=== PATIENT | female | born 1950 | race Hispanic/Latino ===

== ENCOUNTER 2019-08-23 07:38 | Outpatient (CLI) | payer MEDICARE ==
[2019-08-23] MEDS ORDERED: Iopamidol-370 76% 500 ML 1 ML ONE (14:26)
--- NOTE | 2019-08-23 14:48 | CT ---
CT ABDOMEN WITH AND WITHOUT CONTRAST: Date: 08/23/2019 INDICATION: Right upper quadrant abdominal pain and bloating. COMPARISON: None. FINDINGS: No definite renal calculus is evident. Adrenal glands are normal appearing. The gallbladder is surgic ally absent. No focal hepatic lesion is noted. The pancreas and kidneys reveal no definite focal lesi on. There is a partially duplicated right renal collecting system. The spleen is normal appearing. 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 No enlarged lymph nodes or free f luid is evident. There is a normal appendix seen in the right lower quadrant. There is scattered colo guillermo diverticula. No acute osseous abnormality is evident. IMPRESSION: 1. No CT explanation for the patient's right upper quadrant abdominal pain. The gallbladder is surgi edi absent. 2. Colonic diverticulosis without evidence of active diverticulitis. 3. Partially duplicated right renal collecting system. POS: CET
== END 2019-08-23 07:39 | disposition home or self-care (01) ==
LOC: BICCT 07:38
PROVIDERS: ATTEND Family Medicine
DX: R19.01 Right upper quadrant abdominal swelling, mass and lump (principal); K57.30 Diverticulosis of large intestine without perforation or abscess without bleeding; Q63.0 Accessory kidney; Z90.49 Acquired absence of other specified parts of digestive tract
CPT/HCPCS: 74170; 82565; Q9967

== ENCOUNTER 2020-09-03 13:21 | Outpatient (CLI) | payer MEDICARE | END 2020-09-03 13:22 | disposition home or self-care (01) | LOC: BICMAMMO 13:21 | PROVIDERS: ATTEND Family Medicine | DX: Z12.31 Encounter for screening mammogram for malignant neoplasm of breast (principal) | CPT/HCPCS: 77063; 77067 ==

== ENCOUNTER 2020-11-13 13:55 | Outpatient (CLI) | payer MEDICARE | END 2020-11-13 13:56 | disposition home or self-care (01) | LOC: BICRAD 13:55 | PROVIDERS: ATTEND Family Medicine | DX: M54.5 Low back pain (principal); M47.816 Spondylosis without myelopathy or radiculopathy, lumbar region | CPT/HCPCS: 72100 ==

== ENCOUNTER 2021-07-11 13:39 | Outpatient (CLI) | payer MEDICARE | END 2021-07-11 13:40 | disposition home or self-care (01) | LOC: BICULT 13:39 | PROVIDERS: ATTEND Family Medicine | DX: N95.0 Postmenopausal bleeding (principal); N85.8 Other specified noninflammatory disorders of uterus | CPT/HCPCS: 76856 ==

== ENCOUNTER 2022-04-16 13:32 | Outpatient (CLI) | payer MEDICARE, OTHER | END 2022-04-16 13:33 | disposition home or self-care (01) | LOC: BICMAMMO 13:32 | PROVIDERS: ATTEND Family Medicine | DX: Z13.820 Encounter for screening for osteoporosis (principal); Z78.0 Asymptomatic menopausal state; M85.88 Other specified disorders of bone density and structure, other site | CPT/HCPCS: 77080 ==

== ENCOUNTER 2022-07-17 15:13 | Emergency (ER) | payer OTHER ==
[2022-07-17 17:11] LABS: #Basophils 0.1 thou/uL (0.0-0.2); #Eosinphils 0.2 thou/uL (0.0-0.7); #Lymphocytes 2.5 thou/uL (1.20-3.40); #Monocytes 0.4 thou/uL (0.11-0.59); #Neutrophils 5.6 thou/uL (1.40-6.50); %Basophils 0.6 % (0.0-1.0); %Eosinophils 2.1 % (0.0-10.0); %Lymphocytes 28.2 % (21.0-51.0); %Monocytes 4.8 % (0.0-10.0); %Neutrophils 64.3 % (42.0-75.0); Hemoglobin 13.3 g/dL (12.0-16.0); Mean Corpuscular Hemoglobin 30.6 pg (27.0-31.0); Mean Corpuscular Volume 92.8 fl (78.0-98.0); Mean Platelet Volume 9.4 fL (7.4-10.4); Platelet Count 282 10x3/uL (130-400); Red Blood Cell (RBC) Count 4.36 mill/uL (4.20-5.40); White Blood Cell (WBC) Count 8.7 10x3/uL (4.8-10.8)
[2022-07-17 17:31] LABS: ALT (SGPT) 19 U/L (8-55); AST (SGOT) 23 U/L (5-34); Albumin 4.3 g/dL (3.4-4.8); Alkaline Phosphatase 71 U/L (40-110); Anion Gap 14 mmol/L (10-20); BUN (Urea Nitrogen) 9 mg/dL (9.8-20.1); Bilirubin, Total 0.3 mg/dL (0.2-1.2); Calc. Creatinine Clearance 0 mL/min (70-130); Calcium 10.1 mg/dL (7.8-10.44); Carbon Dioxide 28 mmol/L (23-31); Chloride 99 mmol/L (98-107); Estimated GFR 80; Globulin 3.6 g/dL (2.4-3.5); Glucose 188 mg/dL (80-115); Lipase 39 U/L (8-78); Potassium 4.5 mmol/L (3.5-5.1); Protein, Total 7.9 g/dL (5.8-8.1); Sodium 136 mmol/L (136-145)
== END 2022-07-17 17:47 | disposition home or self-care (01) ==
LOC: ERS 15:13
DX: R07.9 Chest pain, unspecified (principal); E11.9 Type 2 diabetes mellitus without complications; Z79.899 Other long term (current) drug therapy; Z79.82 Long term (current) use of aspirin
CPT/HCPCS: 36415; 71045; 80053; 83690; 84484; 85025; 93005

== ENCOUNTER 2023-03-20 08:31 | Outpatient (CLI) | payer OTHER, MEDICAID ==
[2023-03-20 09:35] LABS: #Basophils 0.1 10x3/uL (0.0-0.2); #Eosinphils 0.2 10x3/uL (0.0-0.5); #Monocytes 0.6 10x3/uL (0.0-1.1); %Basophils 0.6 % (0.0-2.0); %Eosinophils 1.8 % (0.0-6.0); %Lymphocytes 23.2 % (18.0-47.0); %Monocytes 4.9 % (0.0-10.0); %Neutrophils 69.2 % (40.0-75.0); Hematocrit 40.6 % (34.9-44.5); Hemoglobin 13.4 g/dL (12.0-15.5); Mean Platelet Volume 11.1 fl (7.4-10.4); Platelet Count 303 10x3/uL (150-450); Red Blood Cell (RBC) Count 4.46 10x6/uL (3.90-5.03); White Blood Cell (WBC) Count 11.5 10x3/uL (3.5-10.5)
[2023-03-20 09:50] LABS: ALT (SGPT) 20 U/L (8-55); AST (SGOT) 21 U/L (5-34); Albumin 4.3 g/dL (3.4-4.8); Alkaline Phosphatase 82 U/L (40-110); Anion Gap 14 mmol/L (10-20); BUN (Urea Nitrogen) 13 mg/dL (9.8-20.1); Bilirubin, Total 0.3 mg/dL (0.2-1.2); Calc. Creatinine Clearance 0 mL/min (70-130); Calcium 9.9 mg/dL (7.8-10.44); Carbon Dioxide 28 mmol/L (23-31); Chloride 100 mmol/L (98-107); Estimated GFR 82; Globulin 3.3 g/dL (2.4-3.5); Glucose 186 mg/dL (80-115); Potassium 4.6 mmol/L (3.5-5.1); Protein, Total 7.6 g/dL (5.8-8.1); Sodium 137 mmol/L (136-145)
== END 2023-03-20 08:32 | disposition home or self-care (01) ==
LOC: LABBT 08:31
PROVIDERS: ATTEND Surgery
DX: Z01.818 Encounter for other preprocedural examination (principal); K43.2 Incisional hernia without obstruction or gangrene
CPT/HCPCS: 80053; 85025; 93005; 93010

== ENCOUNTER 2023-03-27 09:11 | Day surgery (SDC) | payer OTHER, MEDICAID ==
[2023-03-20 09:17] VITALS: BMI 32.3
[2023-03-27] MEDS ORDERED: SUGAMMADEX SODIUM 200 MG/2 ML VIAL ONE (11:09)
[2023-03-27] MEDS ORDERED: Fentanyl 250 MCG/5 ML VIAL ONE ×2 (11:09→12:47)
[2023-03-27] MEDS ORDERED: Bupivacaine 0.25% HCL 30 ML VIAL ONE (11:15)
[2023-03-27] MEDS ORDERED: EPINEPHrine 1 MG/ML AMP ONE (11:15)
[2023-03-27] MEDS ORDERED: Sodium Chloride 0.9% 100 ML ONE (11:20)
[2023-03-27] MEDS ORDERED: CEFAZOLIN 2 GM VIAL ONE (11:20)
[2023-03-27] MEDS ORDERED: Rocuronium Bromide 10 MG/ML (10ML VIAL) ONE (11:35)
[2023-03-27] MEDS ORDERED: PROPOFOL 200 MG/20 ML VIAL ONE (11:35)
[2023-03-27] MEDS ORDERED: Dexamethasone 20 MG/5 ML VIAL ONE (11:35)
[2023-03-27] MEDS ORDERED: Lidocaine 1% PF 5 ML VIAL ONE (11:35)
[2023-03-27] MEDS ORDERED: Ondansetron PF 4 MG/2 ML Vial ONE (11:35)
[2023-03-27] MEDS ORDERED: HYDROcodone/Acetaminophen 5/325 mg Tablet ONE (13:46)
[2023-03-27] MEDS ORDERED: Promethazine HCl 25 MG/ML VIAL ONE (15:13)
== END 2023-03-27 16:26 | disposition home or self-care (01) ==
LOC: SDC 09:11
PROVIDERS: ATTEND Surgery
PROC: 0WJG4ZZ Inspection of Peritoneal Cavity, Percutaneous Endoscopic Approach (ICD-10-PCS; principal; 2023-03-27)
DX: K43.2 Incisional hernia without obstruction or gangrene (principal); K43.9 Ventral hernia without obstruction or gangrene; E11.39 Type 2 diabetes mellitus with other diabetic ophthalmic complication; H40.9 Unspecified glaucoma; Z79.899 Other long term (current) drug therapy
CPT/HCPCS: 36416; J0171; J1100; J2405; J2550; J2704; J3010; J3490; S0020

== ENCOUNTER 2023-11-23 09:08 | Outpatient (CLI) | payer MEDICARE, MEDICAID | END 2023-11-23 09:09 | disposition home or self-care (01) | LOC: BICULT 09:08 | PROVIDERS: ATTEND Family Medicine | DX: R10.11 Right upper quadrant pain (principal) | CPT/HCPCS: 76700 ==